=== PATIENT | male | born 2000 | race African-American/Black ===

== ENCOUNTER 2024-04-10 21:27 | Emergency (ER) | payer OTHER ==
[~2024-04-10] VITALS: Ht 182.9 cm; Wt 119.1 kg
[2024-04-11 00:09] VITALS: TEMP 97.9
[2024-04-11 04:24] VITALS: BP 118/74; O2SAT 98
== END 2024-04-11 04:28 | disposition home or self-care (01) ==
LOC: M ED 21:27
DX: H90.42 Sensorineural hearing loss, unilateral, left ear, with unrestricted hearing on the contralateral side (principal)